=== PATIENT | male | born 1985 | race Hispanic/Latino ===

== ENCOUNTER 2018-11-27 20:11 | Inpatient (IN) | payer BC ==
[2018-11-27 21:36] LABS: #Basophils 0.1 thou/uL (0.0-0.2); #Eosinphils 0.3 thou/uL (0.0-0.7); #Lymphocytes 2.7 thou/uL (1.20-3.40); #Monocytes 1.1 thou/uL (0.11-0.59); #Neutrophils 12.8 thou/uL (1.40-6.50); %Basophils 0.5 % (0.0-1.0); %Eosinophils 1.5 % (0.0-10.0); %Monocytes 6.3 % (0.0-10.0); %Neutrophils 75.7 % (42.0-75.0); Hemoglobin 16.9 g/dL (14.0-18.0); Mean Corpuscular Hemoglobin 31.9 pg (27.0-31.0); Mean Corpuscular Volume 93.9 fL (78.0-98.0); Mean Platelet Volume 6.1 fL (7.4-10.4); Platelet Count 402 thou/uL (130-400); RBC Distribution Width 11.8 % (11.5-14.5); Red Blood Cell (RBC) Count 5.28 mill/uL (4.70-6.10); White Blood Cell (WBC) Count 16.9 thou/uL (4.8-10.8)
[2018-11-27 22:03] LABS: ALT (SGPT) 28 U/L (8-55); AST (SGOT) 18 U/L (5-34); Albumin 4.5 g/dL (3.5-5.0); Alkaline Phosphatase 80 U/L (40-150); Anion Gap 13 mmol/L (10-20); BUN (Urea Nitrogen) 9 mg/dL (8.9-20.6); Bilirubin, Total 0.9 mg/dL (0.2-1.2); Calc. Creatinine Clearance 0 mL/min (70-130); Calcium 10.2 mg/dL (7.8-10.44); Carbon Dioxide 29 mmol/L (22-29); Chloride 100 mmol/L (98-107); Estimated GFR-MDRD Greater than 90; Glucose 111 mg/dL (70-105); Lipase 16 U/L (8-78); Protein, Total 8.5 g/dL (6.0-8.3); Sodium 138 mmol/L (136-145)
[2018-11-28] MEDS ORDERED: Morphine 4 MG/ML VIAL ONE ×4 (00:42→06:12)
[2018-11-28] MEDS ORDERED: Ondansetron PF 4 MG/2 ML Vial ONE ×3 (00:42→03:57)
[2018-11-28] MEDS ORDERED: Piperacillin/Tazobactam 4.5 GM VIAL ONE (03:57)
[2018-11-28 04:15] LABS: Bilirubin Negative (Negative); Blood, Urine Negative (Negative); Clarity CLEAR (Clear); Glucose, Urine (Dipstick) Negative (Negative); Leukocyte Negative (Negative); Nitrite Negative (Negative); Protein, Urine (Dipstick) Negative (Neg-Trace); Urobilinogen 0.2 mg/dL (0.2-1.0); pH, Urine 5.5 (5.0-9.0)
[2018-11-28 04:24] LABS: Specific Gravity, Urine Greater than 1.060 (1.002-1.036)
--- NOTE | 2018-11-28 08:25 | CT ---
PRELIMINARY REPORT/[facility]/EMERGENTY AFTER-HOURS PROCEDURE CT Abdomen and Pelvis With Contrast EXAM DATE/TIME: 11/28/2018 12:37 AM CLINICAL HISTORY: 32 years old, male; Localized; Prior surgery; Patient HX: Er 7. M32 presents to ED with C/O lower abd ominal pain that begins in his back and radiates forward, onset 3 days ago with associated bloody yanelis rrhea and fever. Denies n/v, HX of crohn's, and redness or swelling to testicles. Surgical history of hernia repair TECHNIQUE: Imaging protocol: Axial computed tomography images of the abdomen and pelvis with intravenous contras t. Coronal reformatted images were created and reviewed. COMPARISON: No relevant prior studies available. FINDINGS: ABDOMEN: Liver: There is evidence of fatty infiltration of the enlarged liver. Gallbladder and bile ducts: Normal. No calcified stones. No ductal dilation. Pancreas: Normal. No ductal dilation. Spleen: Normal. No splenomegaly. Adrenals: Normal. No mass. Kidneys and ureters: Normal. No hydronephrosis. Stomach and bowel: There is infiltration of fat adjacent to the sigmoid colon. The wall of the sigmoi d colon is thickened. There are several gas and fluid collection posterior to the sigmoid colon measu ring up to 3.2 x 2.5 cm. Appendix: The appendix is unremarkable. PELVIS: Bladder: Unremarkable as visualized. Reproductive: Unremarkable as visualized. ABDOMEN and PELVIS: Intraperitoneal space: Unremarkable. No free fluid or free air. No fluid collection. Bones/joints: No fracture. No dislocation. Soft tissues: There is bilateral gynecomastia. Vasculature: Normal. No abdominal aortic aneurysm. Lymph nodes: Normal. No enlarged lymph nodes. IMPRESSION: 1. Inflammatory process involving the sigmoid colon. Small gas/fluid collections posterior to the sig moid colon consistent with abscesses due to diverticulitis or other causes. 2. Fatty infiltration of the liver. Thank you for allowing us to participate in the care of your patient. Dictated and Authenticated by: Phani Bhatti MD 11/28/2018 2:34 AM Central Time ([place] & [place]) FINAL REPORT CT ABDOMEN AND PELVIS WITH IV CONTRAST: I agree with the preliminary report given by Dr. Dung Bhatti of [facility]. POS: OFF
[2018-11-28] MEDS ORDERED: Ondansetron PF 4 MG/2 ML Vial IVP PRN (09:54)
[2018-11-28] MEDS ORDERED: Ondansetron ODT 4 MG TAB PO PRN (09:55)
[2018-11-28] MEDS: Morphine 4 MG/ML VIAL IV PRN ×2 (10:31→14:28)
[2018-11-28] MEDS: Sodium Chloride 0.9% 1,000 ML IV SCH ×2 (10:32→18:49)
[2018-11-28] MEDS ORDERED: ISOVUE-370 76%-LOCM 1 ML ONE (10:54)
[2018-11-28] MEDS ORDERED: Dextrose 50% Abboject 50 ML SYRINGE SLOW IVP PRN (11:08)
[2018-11-28] MEDS ORDERED: Insulin Regular 300 UNITS/3 ML VIAL SC PRN (11:08)
[2018-11-28] MEDS ORDERED: Dextrose 5% in Water 1,000 ML IV PRN (11:08)
[2018-11-28] MEDS ORDERED: Piperacillin/Tazobactam 4.5 GM in Sodium Chloride 0.9% 100 ML IVPB SCH (12:00)
[2018-11-28 12:19] LABS: Glucose Accucheck Confirmation 97 mg/dl (70-105)
[2018-11-28] MEDS: metroNIDAZOLE 500 MG in Premix Bag 1 BAG IVPB SCH ×2 (13:21→20:07)
[2018-11-28] MEDS: Piperacillin/Tazobactam 3.375 GM in Sodium Chloride 0.9% 100 ML IVPB SCH ×3 (14:25→23:59)
[2018-11-28] MEDS ORDERED: Ondansetron PF 4 MG/2 ML Vial SLOW IVP PRN (15:27)
--- NOTE | 2018-11-28 15:45 | HP ---
CHIEF COMPLAINT: Left lower quadrant abdominal pain. HISTORY OF PRESENT ILLNESS: The patient is a 32-year-old male with a 5-day history of left lower quadrant pain, which became much worse last night. He has reported two episodes of bright red blood per rectum. He denies fever. No nausea or vomiting. No previous episodes. PAST MEDICAL HISTORY: Diabetes, hypertension, obesity. PAST SURGICAL HISTORY: He had bilateral inguinal hernia repair. He has had back surgery. MEDICATIONS: 1. Lisinopril. 2. Trulicity. ALLERGIES: NO KNOWN DRUG ALLERGIES. SOCIAL HISTORY: He is . He works for [employer]. He smokes one pack per day. Social alcohol. FAMILY HISTORY: Noncontributory. PHYSICAL EXAMINATION: VITAL SIGNS: Temperature 98.4, pulse 86, blood pressure 140/87. GENERAL: He is an obese male, in no apparent distress. HEENT: Unremarkable. LUNGS: Clear. HEART: Regular rate and rhythm. ABDOMEN: Soft. He is tender in the left lower quadrant. There is no palpable mass. He is not distended. EXTREMITIES: Unremarkable. LABORATORY DATA: His white count is 16.9, H and H are 16 and 49, platelet count 402. His electrolytes are fine. His glucose 111. Urinalysis is fine. He had a CT scan of the abdomen and pelvis, which showed diverticulitis of the sigmoid colon with microperforation that appears to be contained and the abscess is too small to be accessed by percutaneous means. ASSESSMENT: Diverticulitis with microperforation. PLAN: IV antibiotics, bowel rest. Job ID: [id number]
[2018-11-28] MEDS: Morphine 4 MG/ML VIAL SLOW IVP PRN ×2 (17:59→22:39)
[2018-11-28 20:27] LABS: Glucose Accucheck Confirmation 89 mg/dl (70-105)
[2018-11-28 23:34] LABS: Glucose Accucheck Confirmation 86 mg/dl (70-105)
[2018-11-29] MEDS ORDERED: diphenhydrAMINE 50 MG/ML VIAL IVP PRN (00:10)
[2018-11-29] MEDS: metroNIDAZOLE 500 MG in Premix Bag 1 BAG IVPB SCH ×3 (03:49→20:23)
[2018-11-29] MEDS: Morphine 4 MG/ML VIAL SLOW IVP PRN ×5 (03:50→20:23)
[2018-11-29 05:26] LABS: #Eosinphils 0.4 thou/uL (0.0-0.7); #Lymphocytes 2.3 thou/uL (1.20-3.40); #Monocytes 1.5 thou/uL (0.11-0.59); #Neutrophils 13.4 thou/uL (1.40-6.50); %Basophils 0.2 % (0.0-1.0); %Eosinophils 2.3 % (0.0-10.0); %Lymphocytes 12.8 % (21.0-51.0); %Monocytes 8.7 % (0.0-10.0); Hemoglobin 15.2 g/dL (14.0-18.0); Mean Corpuscular HGB CONC 34.2 g/dL (32.0-36.0); Mean Corpuscular Hemoglobin 32.1 pg (27.0-31.0); Mean Corpuscular Volume 93.7 fL (78.0-98.0); Mean Platelet Volume 6.2 fL (7.4-10.4); Platelet Count 335 thou/uL (130-400); RBC Distribution Width 11.5 % (11.5-14.5); Red Blood Cell (RBC) Count 4.75 mill/uL (4.70-6.10); White Blood Cell (WBC) Count 17.7 thou/uL (4.8-10.8)
[2018-11-29 05:42] LABS: Glucose Accucheck Confirmation 90 mg/dl (70-105)
[2018-11-29] MEDS: Piperacillin/Tazobactam 3.375 GM in Sodium Chloride 0.9% 100 ML IVPB SCH ×4 (06:18→23:20)
[2018-11-29] MEDS ORDERED: hydrALAZINE 20 MG/ML VIAL SLOW IVP PRN (08:04)
[2018-11-29] MEDS ORDERED: Eucerin (Mineral Oil/Petrolatum,White) 30 gm Jar TOP PRN (08:04)
[2018-11-29] MEDS ORDERED: Artificial Tears 18 DROP/0.9 ML EA EYE PRN (08:04)
[2018-11-29] MEDS ORDERED: Sodium Chloride 0.65% Nasal 44 ML BOT EA NARE PRN (08:04)
[2018-11-29] MEDS ORDERED: Acetaminophen 650 MG Suppository PR PRN (08:04)
--- NOTE | 2018-11-29 09:59 | PRG ---
DATE OF SERVICE: 11/29/2018 SUBJECTIVE: The patient said he was feeling better, but this morning started having more pain. No nausea or vomiting. Still passes some gas out of his bottom. OBJECTIVE: VITAL SIGNS: On examination, temperature 98.7, pulse 90, blood pressure 128/84. GENERAL: He is awake, alert. ABDOMEN: Soft. He is copy lathe tender in the left lower quadrant, but it is no worse. LABORATORY DATA: His white count is 17.7, H and H 15 and 44, and platelet count 335. ASSESSMENT: Diverticulitis. PLAN: Continue IV antibiotics. We will hold off allowing him to eat for now. Job ID: [id number]
--- NOTE | 2018-11-29 10:12 | PDOC.PN ---
- Subjective Encounter Start Date: 11/29/18 Encounter Start Time: 08:00 -: old records requested/rev Patient seen and examined. No new complaints. No overnight events pt has LLQ tenderness - Objective MAR Reviewed: Yes Vital Signs & Weight: Vital Signs (12 hours) Temp Pulse Resp BP Pulse Ox 11/29/18 08:00 94 L 11/29/18 07:57 98.7 F 90 12 128/84 94 L 11/29/18 04:00 98.9 F 84 18 132/82 95 11/28/18 23:50 98.4 F 89 18 124/81 96 Weight Weight 271 lb 2.697 oz I&O: 11/28/18 11/29/18 11/30/18 06:59 06:59 06:59 Intake Total 1400 Balance 1400 Result Diagrams: 11/29/18 05:09 11/27/18 21:24 Additional Labs: Accuchecks 11/28/18 11/28/18 18:57 11:36 POC Glucose 92 107 Radiology Reviewed by me: Yes (CT abdomen noted) Phys Exam - Physical Examination Constitutional: NAD HEENT: PERRLA, moist MMs, sclera anicteric Neck: no JVD, supple Respiratory: no wheezing, no rales, no rhonchi Cardiovascular: RRR, no significant murmur, no rub Gastrointestinal: soft, no distention, positive bowel sounds left LLQ tenderness Musculoskeletal: no edema, pulses present Neurological: non-focal, normal sensation, moves all 4 limbs Lymphatic: no nodes Psychiatric: normal affect, A&O x 3 Skin: no rash, normal turgor Dx/Plan (1) Abscess of sigmoid colon due to diverticulitis Code(s): K57.20 - DVTRCLI OF LG INT W PERFORATION AND ABSCESS W/O BLEEDING Status: Acute (2) Hypertension Code(s): I10 - ESSENTIAL (PRIMARY) HYPERTENSION Status: Chronic (3) Obesity (BMI 30.0-34.9) Code(s): E66.9 - OBESITY, UNSPECIFIED Status: Chronic - Plan cont current plan of care, continue antibiotics * medication reviewed as below * symptomatic treatment * code status- full code * continue current iv antibiotics * keep NPO * surgeon on case * continue NPO * continue IVF * BP controlled for now. * pain control Review of Systems - Review of Systems ENT: negative: Ear Pain, Ear Discharge, Nose Pain, Nose Discharge, Nose Congestion, Mouth Pain, Mouth Swelling, Throat Pain, Throat Swelling, Other Respiratory: negative: Cough, Dry, Shortness of Breath, Hemoptysis, SOB with Excertion, Pleuritic Pain, Sputum, Wheezing Cardiovascular: negative: chest pain, palpitations, orthopnea, paroxysmal nocturnal dyspnea, edema, light headedness, other Gastrointestinal: Abdominal Pain. negative: Nausea, Vomiting, Diarrhea, Constipation, Melena, Hematochezia, Other Genitourinary: negative: Dysuria, Frequency, Incontinence, Hematuria, Retention , Other Musculoskeletal: negative: Neck Pain, Shoulder Pain, Arm Pain, Back Pain, Hand Pain, Leg Pain, Foot Pain, Other Skin: negative: Rash, Lesions, Micah, Bruising, Other - Medications/Allergies Allergies/Adverse Reactions: Allergies Allergy/AdvReac Type Severity Reaction Status Date / Time No Known Allergies Allergy Unverified 11/28/18 09:27 Medications: Current Medications Acetaminophen (Tylenol) 650 mg PA Q4H PRN PRN Reason: Fever > 101 Artificial Tears (Tears Naturale) 2 drop EA EYE PRN PRN PRN Reason: Dry Eyes Dextrose/Water (Dextrose 50%) 25 gm SLOW IVP PRN PRN PRN Reason: Hypoglycemia Diphenhydramine HCl (Benadryl) 25 mg IVP ONE PRN PRN Reason: Insomnia Stop: 11/30/18 00:11 Last Admin: 11/29/18 00:37 Dose: 25 mg Glucagon (Glucagon) 1 mg IM PRN PRN PRN Reason: Hypoglycemia Hydralazine HCl (Apresoline) 10 mg SLOW IVP Q4H PRN PRN Reason: SBP > 180 and HR < 70 Dextrose/Water (D5w) 1,000 mls @ 0 mls/hr IV .Q0M PRN PRN Reason: Hypoglycemia Metronidazole 500 mg/ Device 100 mls @ 100 mls/hr IVPB 0400,1200,2000 [facility] Last Admin: 11/29/18 03:49 Dose: 100 mls Piperacillin Sod/Tazobactam (Sod 3.375 gm/ Sodium Chloride) 100 mls @ 200 mls/ hr IVPB Q6HR [facility] Last Admin: 11/29/18 06:18 Dose: 100 mls Sodium Chloride (Normal Saline 0.9%) 1,000 mls @ 125 mls/hr IV .Q8H [facility] Insulin Human Regular (Humulin R) 0 units SC .MODERATE SLIDING SC PRN PRN Reason: Moderate Correctional Scale Mineral Oil/White Petrolatum (Eucerin Cream) 0 gm TOP BIDPRN PRN PRN Reason: Dry Skin Morphine Sulfate (Morphine) 4 mg SLOW IVP Q4H PRN PRN Reason: Pain Last Admin: 11/29/18 07:54 Dose: 4 mg Ondansetron HCl (Zofran) 4 mg SLOW IVP Q6H PRN PRN Reason: Nausea Sodium Chloride (Flush - Normal Saline) 10 ml IVF Q12HR [facility] Last Admin: 11/28/18 20:07 Dose: 10 ml Sodium Chloride (Flush - Normal Saline) 10 ml IVF PRN PRN PRN Reason: Saline Flush Sodium Chloride ([place] Nasal [place] 0.65%) 0 ml EA NARE QIDPRN PRN PRN Reason: Nasal Congestion
[2018-11-29] MEDS: Sodium Chloride 0.9% 1,000 ML IV SCH ×2 (11:21→17:57)
[2018-11-29 11:51] LABS: Glucose Accucheck Confirmation 95 mg/dl (70-105)
[2018-11-29 18:09] LABS: Glucose Accucheck Confirmation 93 mg/dl (70-105)
[2018-11-29] MEDS ORDERED: Bisacodyl 10 MG SUPP PR PRN (20:38)
[2018-11-29 23:37] LABS: Glucose Accucheck Confirmation 86 mg/dl (70-105)
[2018-11-30] MEDS: Morphine 4 MG/ML VIAL SLOW IVP PRN ×5 (00:47→23:25)
[2018-11-30] MEDS: metroNIDAZOLE 500 MG in Premix Bag 1 BAG IVPB SCH ×3 (03:49→20:43)
[2018-11-30] MEDS: Sodium Chloride 0.9% 1,000 ML IV SCH ×3 (03:50→18:15)
[2018-11-30 05:10] LABS: #Basophils 0.1 thou/uL (0.0-0.2); #Eosinphils 0.4 thou/uL (0.0-0.7); #Lymphocytes 2.3 thou/uL (1.20-3.40); #Monocytes 1.4 thou/uL (0.11-0.59); #Neutrophils 12.6 thou/uL (1.40-6.50); %Basophils 0.4 % (0.0-1.0); %Eosinophils 2.3 % (0.0-10.0); %Lymphocytes 13.7 % (21.0-51.0); %Monocytes 8.1 % (0.0-10.0); %Neutrophils 75.6 % (42.0-75.0); Hemoglobin 14.9 g/dL (14.0-18.0); Mean Corpuscular HGB CONC 33.9 g/dL (32.0-36.0); Mean Corpuscular Hemoglobin 31.6 pg (27.0-31.0); Mean Corpuscular Volume 93.2 fL (78.0-98.0); Mean Platelet Volume 5.9 fL (7.4-10.4); Platelet Count 357 thou/uL (130-400); RBC Distribution Width 11.4 % (11.5-14.5); Red Blood Cell (RBC) Count 4.72 mill/uL (4.70-6.10); White Blood Cell (WBC) Count 16.7 thou/uL (4.8-10.8)
[2018-11-30] MEDS: Piperacillin/Tazobactam 3.375 GM in Sodium Chloride 0.9% 100 ML IVPB SCH ×4 (05:10→23:24)
[2018-11-30 05:25] LABS: Glucose Accucheck Confirmation 87 mg/dl (70-105)
--- NOTE | 2018-11-30 08:23 | PRG ---
DATE OF SERVICE: 11/30/2018 SUBJECTIVE: The patient says he feels better. He had a bowel movement this morning, it was loose, but it made him feel a lot better. He is tolerating clear liquids. Pain is improved. OBJECTIVE: VITAL SIGNS: On exam, he is afebrile, temperature 97.9, pulse 84, and blood pressure 129/82. GENERAL: He looks good. He is awake, alert. ABDOMEN: Soft, less tender, but still a little bit in the left lower quadrant. No peritoneal signs. LABORATORY DATA: White count 16.7, H and H of 14 and 44, and platelet count 357. ASSESSMENT: Slow improvement of diverticulitis with microperforation. PLAN: At some point, we will need to repeat the CT scan of the abdomen and pelvis just to see if this abscess is enlarging. Job ID: [id number]
--- NOTE | 2018-11-30 10:31 | PDOC.PN ---
- Subjective Encounter Start Date: 11/30/18 Encounter Start Time: 08:45 Patient seen and examined. No new complaints. No overnight events his left LLQ pain improving - Objective Resuscitation Status - Order Detail: 11/29/18 10:12 Resuscitation Status Routine Resuscitation Status: FULL: Full Resuscitation MAR Reviewed: Yes Vital Signs & Weight: Vital Signs (12 hours) Temp Pulse Resp BP Pulse Ox 11/30/18 09:25 98.5 F 84 12 113/70 95 11/30/18 04:00 97.9 F 84 20 129/82 95 11/30/18 00:00 98.6 F 82 20 114/68 96 Weight Weight 271 lb 2.697 oz I&O: 11/29/18 11/30/18 12/01/18 06:59 06:59 06:59 Intake Total 1400 2180 Balance 1400 2180 Result Diagrams: 11/30/18 05:02 11/27/18 21:24 Phys Exam - Physical Examination Constitutional: NAD HEENT: PERRLA, moist MMs, sclera anicteric Neck: no JVD, supple Respiratory: no wheezing, no rales, no rhonchi Cardiovascular: RRR, no significant murmur, no rub Gastrointestinal: soft, non-tender, no distention, positive bowel sounds mild LLQ discomfort Musculoskeletal: no edema, pulses present Neurological: non-focal, normal sensation, moves all 4 limbs Lymphatic: no nodes Psychiatric: normal affect, A&O x 3 Skin: no rash, normal turgor Dx/Plan (1) Abscess of sigmoid colon due to diverticulitis Code(s): K57.20 - DVTRCLI OF LG INT W PERFORATION AND ABSCESS W/O BLEEDING Status: Acute (2) Hypertension Code(s): I10 - ESSENTIAL (PRIMARY) HYPERTENSION Status: Chronic (3) Obesity (BMI 30.0-34.9) Code(s): E66.9 - OBESITY, UNSPECIFIED Status: Chronic - Plan cont current plan of care, continue antibiotics * continue zosyn and flagyl * clear liquid diet * as his blood sugar normal, will discontinue hyperglycemia protocol treatment * medication reviewed as below * symptomatic treatment * pain controlled. Review of Systems - Review of Systems ENT: negative: Ear Pain, Ear Discharge, Nose Pain, Nose Discharge, Nose Congestion, Mouth Pain, Mouth Swelling, Throat Pain, Throat Swelling, Other Respiratory: negative: Cough, Dry, Shortness of Breath, Hemoptysis, SOB with Excertion, Pleuritic Pain, Sputum, Wheezing Cardiovascular: negative: chest pain, palpitations, orthopnea, paroxysmal nocturnal dyspnea, edema, light headedness, other Gastrointestinal: negative: Nausea, Vomiting, Abdominal Pain, Diarrhea, Constipation, Melena, Hematochezia, Other Genitourinary: negative: Dysuria, Frequency, Incontinence, Hematuria, Retention , Other Musculoskeletal: negative: Neck Pain, Shoulder Pain, Arm Pain, Back Pain, Hand Pain, Leg Pain, Foot Pain, Other - Medications/Allergies Allergies/Adverse Reactions: Allergies Allergy/AdvReac Type Severity Reaction Status Date / Time No Known Allergies Allergy Unverified 11/28/18 09:27 Medications: Current Medications Acetaminophen (Tylenol) 650 mg [place] Q4H PRN PRN Reason: Fever > 101 Artificial Tears (Tears Naturale) 2 drop EA EYE PRN PRN PRN Reason: Dry Eyes Bisacodyl (Dulcolax) 10 mg MT DAILYPRN PRN PRN Reason: Constipation Last Admin: 11/29/18 23:20 Dose: 10 mg Hydralazine HCl (Apresoline) 10 mg SLOW IVP Q4H PRN PRN Reason: SBP > 180 and HR < 70 Metronidazole 500 mg/ Device 100 mls @ 100 mls/hr IVPB 0400,1200,2000 [facility] Last Admin: 11/30/18 03:49 Dose: 100 mls Piperacillin Sod/Tazobactam (Sod 3.375 gm/ Sodium Chloride) 100 mls @ 200 mls/ hr IVPB Q6HR [facility] Last Admin: 11/30/18 05:10 Dose: 100 mls Sodium Chloride (Normal Saline 0.9%) 1,000 mls @ 125 mls/hr IV .Q8H [facility] Last Admin: 11/30/18 03:50 Dose: 1,000 mls Mineral Oil/White Petrolatum (Eucerin Cream) 0 gm TOP BIDPRN PRN PRN Reason: Dry Skin Morphine Sulfate (Morphine) 4 mg SLOW IVP Q4H PRN PRN Reason: Pain Last Admin: 11/30/18 05:12 Dose: 4 mg Ondansetron HCl (Zofran) 4 mg SLOW IVP Q6H PRN PRN Reason: Nausea Sodium Chloride (Flush - Normal Saline) 10 ml IVF Q12HR [facility] Last Admin: 11/30/18 08:31 Dose: Not Given Sodium Chloride (Flush - Normal Saline) 10 ml IVF PRN PRN PRN Reason: Saline Flush Sodium Chloride ([place] Nasal [place] 0.65%) 0 ml EA NARE QIDPRN PRN PRN Reason: Nasal Congestion
[2018-11-30] MEDS ORDERED: Insulin Regular 300 UNITS/3 ML VIAL SC PRN (10:35)
[2018-12-01] MEDS: Sodium Chloride 0.9% 1,000 ML IV SCH ×3 (01:48→18:18)
[2018-12-01] MEDS: metroNIDAZOLE 500 MG in Premix Bag 1 BAG IVPB SCH ×3 (04:22→20:21)
[2018-12-01] MEDS: Piperacillin/Tazobactam 3.375 GM in Sodium Chloride 0.9% 100 ML IVPB SCH ×4 (06:18→23:43)
--- NOTE | 2018-12-01 10:14 | PDOC.PN ---
- Subjective Encounter Start Date: 12/01/18 Encounter Start Time: 08:40 Patient seen and examined. No new complaints. No overnight events - Objective Resuscitation Status - Order Detail: 11/29/18 10:12 Resuscitation Status Routine Resuscitation Status: FULL: Full Resuscitation MAR Reviewed: Yes Vital Signs & Weight: Vital Signs (12 hours) Temp Pulse Resp BP Pulse Ox 12/01/18 09:06 97.7 F 88 20 117/77 100 12/01/18 04:00 98.5 F 77 20 121/79 95 12/01/18 00:00 98.2 F 82 20 125/81 94 L Weight Weight 271 lb 2.697 oz I&O: 11/30/18 12/01/18 12/02/18 06:59 06:59 06:59 Intake Total 2180 4730 Balance 2180 4730 Result Diagrams: 11/30/18 05:02 11/27/18 21:24 Additional Labs: Accuchecks 12/01/18 11/30/18 11/30/18 06:00 23:40 18:22 POC Glucose 81 84 101 11/30/18 11:53 POC Glucose 89 Phys Exam - Physical Examination Constitutional: NAD HEENT: PERRLA, moist MMs, sclera anicteric Neck: no JVD, supple Respiratory: no wheezing, no rales, no rhonchi Cardiovascular: RRR, no significant murmur, no rub Gastrointestinal: soft, non-tender, no distention, positive bowel sounds Musculoskeletal: no edema, pulses present Neurological: non-focal, normal sensation, moves all 4 limbs Lymphatic: no nodes Psychiatric: normal affect, A&O x 3 Skin: no rash, normal turgor Dx/Plan (1) Abscess of sigmoid colon due to diverticulitis Code(s): K57.20 - DVTRCLI OF LG INT W PERFORATION AND ABSCESS W/O BLEEDING Status: Acute (2) Hypertension Code(s): I10 - ESSENTIAL (PRIMARY) HYPERTENSION Status: Chronic (3) Obesity (BMI 30.0-34.9) Code(s): E66.9 - OBESITY, UNSPECIFIED Status: Chronic - Plan cont current plan of care, plan discussed w/ family, continue antibiotics * continue current medical treatment * symptomatic treatment * repeat imaging will defer to surgeon * diet advancement as per surgeon * pain controlled. Review of Systems - Review of Systems ENT: negative: Ear Pain, Ear Discharge, Nose Pain, Nose Discharge, Nose Congestion, Mouth Pain, Mouth Swelling, Throat Pain, Throat Swelling, Other Respiratory: negative: Cough, Dry, Shortness of Breath, Hemoptysis, SOB with Excertion, Pleuritic Pain, Sputum, Wheezing Cardiovascular: negative: chest pain, palpitations, orthopnea, paroxysmal nocturnal dyspnea, edema, light headedness, other Gastrointestinal: negative: Nausea, Vomiting, Abdominal Pain, Diarrhea, Constipation, Melena, Hematochezia, Other Genitourinary: negative: Dysuria, Frequency, Incontinence, Hematuria, Retention , Other Musculoskeletal: negative: Neck Pain, Shoulder Pain, Arm Pain, Back Pain, Hand Pain, Leg Pain, Foot Pain, Other - Medications/Allergies Allergies/Adverse Reactions: Allergies Allergy/AdvReac Type Severity Reaction Status Date / Time No Known Allergies Allergy Unverified 11/28/18 09:27 Medications: Current Medications Acetaminophen (Tylenol) 650 mg OR Q4H PRN PRN Reason: Fever > 101 Artificial Tears (Tears Naturale) 2 drop EA EYE PRN PRN PRN Reason: Dry Eyes Bisacodyl (Dulcolax) 10 mg OR DAILYPRN PRN PRN Reason: Constipation Last Admin: 11/29/18 23:20 Dose: 10 mg Hydralazine HCl (Apresoline) 10 mg SLOW IVP Q4H PRN PRN Reason: SBP > 180 and HR < 70 Metronidazole 500 mg/ Device 100 mls @ 100 mls/hr IVPB 0400,1200,2000 [facility] Last Admin: 12/01/18 04:22 Dose: 100 mls Piperacillin Sod/Tazobactam (Sod 3.375 gm/ Sodium Chloride) 100 mls @ 200 mls/ hr IVPB Q6HR [facility] Last Admin: 12/01/18 06:18 Dose: 100 mls Sodium Chloride (Normal Saline 0.9%) 1,000 mls @ 125 mls/hr IV .Q8H [facility] Last Admin: 12/01/18 01:48 Dose: 1,000 mls Insulin Human Regular (Humulin R) 0 units SC .MODERATE SLIDING SC PRN; Protocol PRN Reason: MODERATE SLIDING SCALE Mineral Oil/White Petrolatum (Eucerin Cream) 0 gm TOP BIDPRN PRN PRN Reason: Dry Skin Morphine Sulfate (Morphine) 4 mg SLOW IVP Q4H PRN PRN Reason: Pain Last Admin: 11/30/18 23:25 Dose: 4 mg Ondansetron HCl (Zofran) 4 mg SLOW IVP Q6H PRN PRN Reason: Nausea Sodium Chloride (Flush - Normal Saline) 10 ml IVF Q12HR [facility] Last Admin: 11/30/18 20:50 Dose: Not Given Sodium Chloride (Flush - Normal Saline) 10 ml IVF PRN PRN PRN Reason: Saline Flush Last Admin: 11/30/18 12:01 Dose: 10 ml Sodium Chloride ([place] Nasal [place] 0.65%) 0 ml EA NARE QIDPRN PRN PRN Reason: Nasal Congestion
[2018-12-01] MEDS ORDERED: Acetaminophen 500 MG TAB PO PRN (20:01)
[2018-12-02] MEDS: metroNIDAZOLE 500 MG in Premix Bag 1 BAG IVPB SCH (04:01)
[2018-12-02] MEDS: Sodium Chloride 0.9% 1,000 ML IV SCH (04:01)
[2018-12-02] MEDS: Piperacillin/Tazobactam 3.375 GM in Sodium Chloride 0.9% 100 ML IVPB SCH (05:31)
[2018-12-02 08:01] VITALS: TEMP 98
--- NOTE | 2018-12-02 09:45 | PDOC.PN ---
- Subjective Encounter Start Date: 12/02/18 Encounter Start Time: 08:00 Patient seen and examined. No new complaints. No overnight events - Objective Resuscitation Status - Order Detail: 11/29/18 10:12 Resuscitation Status Routine Resuscitation Status: FULL: Full Resuscitation MAR Reviewed: Yes Vital Signs & Weight: Vital Signs (12 hours) Temp Pulse Resp BP Pulse Ox 12/02/18 08:00 98 F 77 16 112/72 99 12/02/18 04:07 98.3 F 77 18 120/81 99 12/01/18 23:39 98.2 F 92 18 107/70 94 L 12/01/18 22:08 100 Weight Weight 271 lb 2.697 oz I&O: 12/01/18 12/02/18 12/03/18 06:59 06:59 06:59 Intake Total 5080 2380 Balance 5080 2380 Result Diagrams: 11/30/18 05:02 11/27/18 21:24 Additional Labs: Accuchecks 12/02/18 12/01/18 12/01/18 05:38 23:40 15:24 POC Glucose 106 96 80 12/01/18 11:29 POC Glucose 90 Phys Exam - Physical Examination Constitutional: NAD HEENT: PERRLA, moist MMs, sclera anicteric Neck: no JVD, supple Respiratory: no wheezing, no rales, no rhonchi Cardiovascular: RRR, no significant murmur, no rub Gastrointestinal: soft, non-tender, no distention, positive bowel sounds Musculoskeletal: no edema, pulses present Neurological: non-focal, normal sensation, moves all 4 limbs Lymphatic: no nodes Psychiatric: normal affect, A&O x 3 Skin: no rash, normal turgor Dx/Plan (1) Abscess of sigmoid colon due to diverticulitis Code(s): K57.20 - DVTRCLI OF LG INT W PERFORATION AND ABSCESS W/O BLEEDING Status: Acute (2) Hypertension Code(s): I10 - ESSENTIAL (PRIMARY) HYPERTENSION Status: Chronic (3) Obesity (BMI 30.0-34.9) Code(s): E66.9 - OBESITY, UNSPECIFIED Status: Chronic - Plan cont current plan of care, continue antibiotics * continue current medical treatment * symptomatic treatment * DC IVF * continue antibiotics * pain controlled * diet advancement as per surgeon. Review of Systems - Review of Systems ENT: negative: Ear Pain, Ear Discharge, Nose Pain, Nose Discharge, Nose Congestion, Mouth Pain, Mouth Swelling, Throat Pain, Throat Swelling, Other Respiratory: negative: Cough, Dry, Shortness of Breath, Hemoptysis, SOB with Excertion, Pleuritic Pain, Sputum, Wheezing Cardiovascular: negative: chest pain, palpitations, orthopnea, paroxysmal nocturnal dyspnea, edema, light headedness, other Gastrointestinal: negative: Nausea, Vomiting, Abdominal Pain, Diarrhea, Constipation, Melena, Hematochezia, Other Genitourinary: negative: Dysuria, Frequency, Incontinence, Hematuria, Retention , Other Musculoskeletal: negative: Neck Pain, Shoulder Pain, Arm Pain, Back Pain, Hand Pain, Leg Pain, Foot Pain, Other Skin: negative: Rash, Lesions, Micah, Bruising, Other - Medications/Allergies Allergies/Adverse Reactions: Allergies Allergy/AdvReac Type Severity Reaction Status Date / Time No Known Allergies Allergy Unverified 11/28/18 09:27 Medications: Current Medications Acetaminophen (Tylenol) 650 mg [place] Q4H PRN PRN Reason: Fever > 101 Acetaminophen (Tylenol) 1,000 mg PO Q6H PRN PRN Reason: Moderate to Severe Pain (6-10) Artificial Tears (Tears Naturale) 2 drop EA EYE PRN PRN PRN Reason: Dry Eyes Hydralazine HCl (Apresoline) 10 mg SLOW IVP Q4H PRN PRN Reason: SBP > 180 and HR < 70 Metronidazole 500 mg/ Device 100 mls @ 100 mls/hr IVPB 0400,1200,2000 [facility] Last Admin: 12/02/18 04:01 Dose: 100 mls Piperacillin Sod/Tazobactam (Sod 3.375 gm/ Sodium Chloride) 100 mls @ 200 mls/ hr IVPB Q6HR [facility] Last Admin: 12/02/18 05:31 Dose: 100 mls Sodium Chloride (Normal Saline 0.9%) 1,000 mls @ 125 mls/hr IV .Q8H [facility] Last Admin: 12/02/18 04:01 Dose: 1,000 mls Insulin Human Regular (Humulin R) 0 units SC .MODERATE SLIDING SC PRN; Protocol PRN Reason: MODERATE SLIDING SCALE Mineral Oil/White Petrolatum (Eucerin Cream) 0 gm TOP BIDPRN PRN PRN Reason: Dry Skin Morphine Sulfate (Morphine) 4 mg SLOW IVP Q4H PRN PRN Reason: Pain Last Admin: 11/30/18 23:25 Dose: 4 mg Ondansetron HCl (Zofran) 4 mg SLOW IVP Q6H PRN PRN Reason: Nausea Sodium Chloride (Flush - Normal Saline) 10 ml IVF Q12HR [facility] Last Admin: 12/01/18 21:32 Dose: Not Given Sodium Chloride (Flush - Normal Saline) 10 ml IVF PRN PRN PRN Reason: Saline Flush Last Admin: 11/30/18 12:01 Dose: 10 ml Sodium Chloride ([place] Nasal [place] 0.65%) 0 ml EA NARE QIDPRN PRN PRN Reason: Nasal Congestion
--- NOTE | 2018-12-02 11:13 | PRG ---
DATE OF SERVICE: 12/02/2018 SUBJECTIVE: Girish Aguilar is doing well today. He does not have any pain whatsoever. He remains afebrile, 98 degrees. Heart rate 77, and blood pressure 112/72. His white count was 16.7 yesterday, not rechecked since. OBJECTIVE: LUNGS: Clear to auscultation. CARDIAC: Regular rate and rhythm without murmur or gallop. ABDOMEN: Soft and nontender. No pain or tenderness whatsoever. ASSESSMENT AND PLAN: Diverticulitis, well controlled on antibiotics. We will change him to oral antibiotics. We will plan discharge home today on a low-fiber diet, soft for 2 weeks, transition to high-fiber diet after 2 weeks. He should follow up with Dr. Plunkett in 2-3 weeks. We will give him Augmentin for 7 days 875 p.o. b.i.d. I have counseled him on tobacco cessation and alcohol cessation. I have counseled him he is to have healthy lifestyle and weight reduction. I have told him that he does not need to have an operation or repeat CAT scan unless symptoms or clinical situation changes and he will follow up with Dr. Plunkett, and discuss this further as an outpatient. Job ID: [id number]
[2018-12-02 11:43] VITALS: BP 125/82
--- NOTE | 2018-12-02 15:05 | DIS ---
DATE OF ADMISSION: 11/28/2018 DATE OF DISCHARGE: 12/02/2018 PRIMARY CARE PHYSICIAN: Dr. Jacinto Goodman. DISCHARGE DISPOSITION: Home. PRIMARY DISCHARGE DIAGNOSIS: Sigmoid colon diverticulitis with abscess. SECONDARY DISCHARGE DIAGNOSES: Hypertension and obesity. PRIMARY PROCEDURE/OPERATION: None. RADIOLOGICAL INVESTIGATION: CT abdomen and pelvis. SIGNIFICANT LABORATORY DATA: Hemoglobin 14.9, WBC 16.7, and platelet 357. Creatinine 0.95. DISCHARGE MEDICATIONS: 1. Augmentin 875 mg twice daily for 7 days. 2. Tylenol 1 g q.6 hourly p.r.n. 3. Aspirin 81 mg daily. 4. Amlodipine 5 mg p.o. daily. 5. Lisinopril 10 mg p.o. daily. CONTRAINDICATION: None. CODE STATUS: Full code. INPATIENT MULTIMEDIA PROGRAMMER: Dr. Plunkett was primary. Sound Team was following for medical problem. TEST RESULTS PENDING ON DISCHARGE: None. ALLERGIES: NO KNOWN DRUG ALLERGIES. DISCHARGE PLAN: Posthospital, the patient will follow up with primary care physician and Dr. Plunkett as instructed. HOSPITAL COURSE: A 32-year-old male with above-mentioned medical problem, who was admitted by Dr. Plunkett. The patient was having left lower quadrant abdominal pain. He was diagnosed with diverticulitis with abscess based on CT scan. He was admitted to the surgical floor. He was treated with Flagyl and Zosyn. He was kept n.p.o. for a couple of days, and then diet was advanced slowly to full liquid diet. Necessary patient education about diet was given. On discharge, Augmentin was prescribed. Rest of medications will be continued as per previous. The patient is seen and examined at bedside today. Please see my progress note from today for further detail. Job ID: [id number]
[2018-12-02] MEDS ORDERED: Amoxicillin/Potassium Clav 875 MG TAB PO SCH (21:00)
--- NOTE | 2018-12-03 02:53 | DIS ---
DATE OF ADMISSION: 11/28/2018 DATE OF DISCHARGE: 12/02/2018 HISTORY: Girish Aguilar is a 32-year-old male patient, 5 foot and 11 inches, 37 BMI, 271 pounds, admitted by Dr. Plunkett on 11/28/2018 for diverticulitis. He had been seen by Dr. Jacinto Goodman, had a CAT scan scheduled for his abdominal pain, but could not stand his pain any longer and presented to the emergency room on the day of admission, undergone a CAT scan revealing changes of diverticulitis with contained perforation. He was treated with intravenous antibiotics and bowel rest. His pain and tenderness resolved. He was transitioned to full liquids to soft diet, low fiber and oral antibiotics. He is to resume his home medications. Lisinopril and Trulicity. Prior to discharge, he was counseled as to tobacco cessation, alcohol cessation, healthier lifestyle, weight reduction, soft low-fiber diet for 2 weeks, transition to high-fiber diet after that. Consideration for colonoscopy in the next 2 to 3 months recommended. Job ID: [id number]
== END 2018-12-02 12:20 | disposition home or self-care (01) | DRG 392 ==
LOC: ERS 20:11 → ERHOLD 11-28 02:56 → 3SE 11-28 09:36 → SJJU 11-28 19:45
PROVIDERS: ADMIT Surgery; ATTEND Surgery
DX: K57.20 Diverticulitis of large intestine with perforation and abscess without bleeding (principal); E11.9 Type 2 diabetes mellitus without complications; I10 Essential (primary) hypertension; E66.9 Obesity, unspecified; F17.210 Nicotine dependence, cigarettes, uncomplicated; Z79.899 Other long term (current) drug therapy; Z68.37 Body mass index [BMI] 37.0-37.9, adult; Z79.82 Long term (current) use of aspirin
CPT/HCPCS: 36415; 36416; 74177; 80053; 81003; 82947; 83690; 85025; 96361; 96365; 96375; 96376; J1200; J2270; J2405; J2543; J3490; Q9966